=== PATIENT | male | born 1975 | race Hispanic/Latino ===

== ENCOUNTER 2022-07-19 04:31 | Emergency (ER) | payer OTHER ==
[~2022-07-19] VITALS: Ht 167.6 cm; Wt 85.7 kg
[2022-07-19 05:44] VITALS: BP 134/83
== END 2022-07-19 06:21 | disposition home or self-care (01) ==
LOC: EDH 04:31
DX: I10 Essential (primary) hypertension (principal)

== ENCOUNTER 2024-11-08 10:52 | Emergency (ER) | payer SELFPAY ==
[~2024-11-08] VITALS: Ht 165.1 cm; Wt 86.2 kg
--- NOTE | 2024-11-08 11:00 | ERN ---
ED Note History of Present Illness Stated Complaint: HEADACHE, HIGH BLOD PRESSURE Chief Complaint: Hypertension Time Seen by MD: 10:55 Dictation: PATIENT IS A 49-YEAR-OLD MALE COMING IN TODAY WITH KNOWN HYPERTENSION WITH COMPLAINTS OF AN OCCIPITAL HEADACHE FOR THE LAST 2-3 DAYS AND HIGH BLOOD PRESSURE. HE STATES HE HAS A HISTORY OF HIGH BLOOD PRESSURE IN HIS DOCTOR IS OLIVA NAVA HOWEVER HAS NOT BEEN BACK TO SEE THEM SINCE A TREATED IT TWO YEARS AGO. HE DENIES CHEST PAIN BACK PAIN NO SOB. NO OTHER COMORBIDITIES. NIH IS 0. BLOOD PRESSURE IN TRIAGE 177/109 Allergies: Coded Allergies: No Known Drug Allergies (Unverified Allergy, Unknown, 07/19/22) Past Medical History Past Medical History: Hypertension Surgical History: None Family History: HTN Social History: Negative, Lives with family RN Note Reviewed/Agreed w/PFSH: Yes Review of System Dictation CONSTITUTIONAL: NEGATIVE EXCEPT FOR HPI HEAD/FACE: NEGATIVE EXCEPT FOR HPI EENT: NEGATIVE EXCEPT FOR HPI RESPIRATORY: NEGATIVE EXCEPT FOR HPI GASTROINTESTINAL/ABDOMINAL: NEGATIVE EXCEPT FOR HPI GENITOURINARY: NEGATIVE EXCEPT FOR HPI MUSCULOSKELETAL: NEGATIVE EXCEPT FOR HPI INTEGUMENTARY: NEGATIVE EXCEPT FOR HPI NEUROLOGICAL/PSYCH: NEGATIVE EXCEPT FOR HPI OCCIPITAL HEADACHE HEMATOLOGIC/LYMPHATIC: NEGATIVE EXCEPT FOR HPI ALL SYSTEMS NEGATIVE, EXCEPT NOTED ABOVE. 13 POINT REVIEW OF SYSTEMS ASSESSED AND ALL NEGATIVE EXCEPT FOR ABOVE. Initial Vital Sign VS Vital Signs Date Time Temp Pulse Resp B/P (MAP) Pulse Ox O2 Delivery O2 Flow Rate FiO2 11/08/24 10:54 98.2 93 16 177/109 97 Room Air 11/08/24 12:00 0 21 Physical Exam Dictation VITAL SIGNS REVIEWED GENERAL APPEARANCE: ALERT, ORIENTED X 3, MILD ACUTE DISTRESS, WELL DEVELOPED, NOURISHED. HEAD AND FACE: NON-TRAUMATIC. EYES: PERRL, PINK CONJUNCTIVAS, EYELID NO TRAUMA, ANTERIOR CHAMBER WITH ARCUS SENILIS. EARS: PINNAS INTACT AND NO SIGNS OF TRAUMA OR ERYTHEMA EAR CANALS CLEAR AND NO DISCHARGE TM NO ERYTHEMA NOSE: NO DISCHARGE, NO BLEEDING. OROPHARYNX: MOUTH NORMAL, TONGUE PINK, PHARYNX CLEAR,NO ERYTHEMA, TONSILS NO EXUDATES, NO ABSCESSES NOTED, MUCOUS MEMBRANE MOIST NECK: SUPPLE, NON-TENDER, NO THYROMEGALY, NO MASSES, NO JVD, NO BRUITS BREAST:DEFERRED CHEST:NO TENDERNESS, NO CREPITUS, NO PARADOXICAL MOVEMENT, NO RETRACTIONS LUNGS:CLEAR, WELL-VENTILATED, SYMMETRIC, NO RALES, NO WHEEZING, NO RHONCHI, NO STRIDOR, GOOD BREATH SOUNDS BILATERALLY HEART: REGULAR RATE, REGULAR RHYTHM, NO MURMUR, NO GALLOPS VASCULAR: NO PERIPHERAL EDEMA, ABDOMEN: SOFT, POSITIVE BOWEL SOUNDS, NONDISTENDED, NO GUARDING, NONTENDER, NO REBOUND, NO MASSES NO HEPATOMEGALY, NO SPLENOMEGALY, NO HORVATH'S SIGN, NO HERNIAS. RECTAL: DEFERRED GENITAL: DEFERRED NEUROLOGICAL: NORMAL SPEECH, MOTOR FUNCTION INTACT, SENSORY FUNCTION INTACT NIH IS 0 MUSCULOSKELETAL: NECK NONTENDER, FULL RANGE OF MOTION, BACK NONTENDER, FULL RANGE OF MOTION, EXTREMITIES: NONTENDER, FULL RANGE OF MOTION SKIN: COLOR PINK, DRY, NO TURGOR, NO RASH, NO LACERATIONS, NO ABRASIONS, NO CONTUSIONS. LYMPHATIC: DEFERRED Results (Laboratory/Radiology) Labs Reviewed?: Yes ED Course ED Course Orders Procedure Category Date Status Time Acetaminophen 500mg PHA 11/08/24 Complete Tab (Tylenol 500mg T 11:00 Clonidine Hcl 0.1 Mg PHA 11/08/24 Complete Tablet (Catapres 0. 11:00 Current Medications Medications (Trade) Dose Ordered Sig/Mag Route PRN Reason Start Time Stop Time Status Last Admin Dose Admin Acetaminophen (TYLenol 500MG TAB) 1,000 mg ONCE ONCE PO 11/08/24 11:00 11/08/24 11:02 DC 11/08/24 11:52 Clonidine HCl (CATApres 0.1 mg TAB) 0.1 mg ONCE ONCE PO 11/08/24 11:00 11/08/24 11:02 DC 11/08/24 11:52 Vital Signs Date Time Temp Pulse Resp B/P (MAP) Pulse Ox O2 Delivery O2 Flow Rate FiO2 11/08/24 12:00 98.2 88 18 164/113 98 Room Air* 0 21 11/08/24 11:52 164/112 11/08/24 10:54 98.2 93 16 177/109 97 Room Air 1225/blood pressure 146/90 after clonidine. Patient will be discharged home with clonidine prescription and told to see his doctor at [facility] for management. Medical Decision Making MDM Medical decision-making was based without labs or EKG. Patient has a known history of hypertension has been to [facility] in the past for the same complaint. Patient given clonidine with repeat blood pressure markedly improved Discharged home with clonidine prescription and told to see his doctor at [facility] for management DX & DISP Disposition: Discharge Departure Impression: Primary Impression: Hypertension Condition: Stable Scripts Clonidine HCl (Clonidine HCl) 0.1 Mg Tablet 1 TAB PO HS for 15 Days, #30 TAB 0 Refills Prov: DEMOND LOW NP 11/08/24 Additional Instructions: Follow-up with primary care provider in 1 to 2 days. Take medications as directed here in the emergency room. Okay to continue home medications unless otherwise discussed during your visit in the emergency room today. Return to your nearest emergency room if symptoms worsen or if there is no improvement. Call 911 if you need immediate assistance. Take Tylenol or Motrin [id number] as needed and if no contraindications are present. Increase oral hydration. A wound culture or urine culture was ordered here in the emergency room department please follow-up with primary care provider and advise them to get repeat ports from our facility. If you had any Carlos wrap/splints that were applied here, please do not remove them until you see your primary care or specialty. Take clonidine as directed for your blood pressure. Follow up with your doctor at [facility] for management of your blood pressure longterm Referrals: SELF,REFERRAL (PCP) Time of Disposition: 12:26 I have reviewed the case, and I agree with, Diagnosis and Plan DEMOND LOW NP Nov 08, 2024 11:00
[2024-11-08] MEDS ORDERED: CLON0.1T PO (12:26)
[2024-11-08 12:34] VITALS: BP 146/90; PULSE 69; RESP 16; TEMP 98.2; O2SAT 97
== END 2024-11-08 14:38 | disposition home or self-care (01) ==
LOC: EDH 10:52
DX: I10 Essential (primary) hypertension (principal)
CPT/HCPCS: 99283